=== PATIENT | female | born 1970 | race Caucasian/White ===

== ENCOUNTER → 2023-12-20 15:07 | Outpatient (REF) | payer OTHER, SELFPAY | LOC: WDC 15:07 | PROVIDERS: ATTENDING PHYSICIAN Obstetrics & Gynecology; FAMILY PHYSICIAN Nurse Practitioner | DX: Z12.31 Encounter for screening mammogram for malignant neoplasm of breast (principal) | CPT/HCPCS: 77063; 77067 ==

== ENCOUNTER → 2024-02-21 17:17 | Outpatient (REF) | payer OTHER, SELFPAY | LOC: RCS 17:17 | PROVIDERS: ATTENDING PHYSICIAN Nurse Practitioner | DX: R68.89 Other general symptoms and signs (principal); Z82.49 Family history of ischemic heart disease and other diseases of the circulatory system | CPT/HCPCS: 93306 ==

== ENCOUNTER → 2024-08-30 07:12 | Outpatient (REF) | payer OTHER, SELFPAY | LOC: HWRAD 07:12 | PROVIDERS: FAMILY PHYSICIAN Nurse Practitioner | DX: R94.5 Abnormal results of liver function studies (principal) | CPT/HCPCS: 76700 ==